=== PATIENT | female | born 1985 | race Caucasian/White ===

== ENCOUNTER 2018-03-10 11:38 | Day surgery (SDC) | payer OTHER ==
--- NOTE | 2018-03-09 23:07 | PDGENHP ---
History and Physical - Chief Complaint Right hip pain - History of Present Illness 1. ~Bilateral~Femoroacetabular impingement (RICARDO) Cam type, with~resultant labral tear; RIGHT SIDE SYMPTOMATIC HISTORY OF PRESENT ILLNESS: Marlonis a 32 y.o.~very ~active female~who I have had the pleasure to consult on today. I have enjoyed meeting her. She~lives in [place]. 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 ~She~ is single; she~has no~children. ~Marlonenjoys running marathons, yoga, hiking, and cycling. Gauri's right~hip pain~started in 2008 while training for her second marathon, with no~recalled trauma or injury, and with no~previous complaints. Marlondoes not have~a known history of hip dysplasia. Presentation today is of anterior and~lateral right~hip pain.~~The hip does~ wake her~at night and does~click and catch on her. Sitting can be uncomfortable~ for her. Marlondoes not~report suffering from lower back pain episodes ( currently). Marlonhas~participated in physical therapy over a period of 8 years and more recently for the last several months~and has~tried other conservative measures including hip injection during an MRI (she does not recall symptom relief)~, dry needling, chiropractic treatments and massage therapy. She~has not~received sufficient symptomatic improvement. Marlonhas not~utilized medication for pain management. Marlondenies issues with the left~hip. ~ Marlonunderstands that she~has a hip and pelvis problem which should be researched and wishes to get a better understanding of her~hip status, followed by an establishment of a treatment strategy, hoping she~would be able to get back to her~well being active life. History: Past medical history: ~ None which is relevant Relevant familial history: None which is relevant Past surgical history: None Marlonhas never received general anesthesia. I have reviewed, verified and agree with the past medical, surgical, family and social history. Current Medications:~has a current medication list which includes the following prescription(s): magnesium. ALLERGIES:~has No Known Allergies. Objective: Physical Examination: Marlonis 5~feet 7~inches tall and weighs 132~Lbs. Gauri~is AAO x3; she~is well- nourished, in NAD. Skin is warm and dry. ~Breathing is non-labored. ~CV with RRR by pulse. Abdomen is soft, NTND. Currently, she~walks with a normal~gait. Trendelenburg sign is negative~and proprioception is normal, both~sides. She~presents with mild~signs of joint laxity. Beightons Score: 3 (knees, Left elbow) Lower spine examination is negative~for sciatic or femoral nerve irritation with negative~SLR &~femoral stretch tests. Range of motion of the spine is normal~for flexion, extension, and rotations, with no~associated pain. Strength, Sensation and pulses are normal - bilaterally Ankles and knees exams are normal~and no~mal-alignment is evident. She~has~left~0.5~cm short leg length discrepancy. Thigh circumference is symmetric~with no evidence for muscle atrophy~on both~ sides. Hip ROM (degrees): FL ER At 90~hip FL IR At 90~hip FL AB AD EX IR Neutral hip ER Neutral hip R 100 50 15 40 5 10 45 40 L 105 55 15 40 5 10 45 40 Specific hip and pelvis tests: Impingement Test CHI Roll Add. Longus R +++ +++ Negative Negative L Negative Negative Negative Negative Glut. Med ITB Posterior Imp R Negative 5/5 strength Negative 5/5 strength Negative L Negative 5/5 strength Negative 5/5 strength Negative Squeeze test measured normal Bony Symphysis pubis is painful~to touch while concentric activity of the rectus abdominis, does not~produce pain at its insertion. Ilio Psos specific tests are~positive for pain during cycling for the right hip~ and no snap HF has good strength both hips. Anterior/Posterior~capsule tenderness RIGHT SIDE Greater trochanteric burse is pain free~on both hips. Piriformis tests: FAIR is negative, with no~local signs of neuritis related to sciatic nerve. SIJs examination is produces pain on left side~with normal~CHI in relation and local tenderness. (SIJ pain not a usual source of pain) Hamstrings tests are negative~functional contraction and negative~tendinopathy both hips. Imaging: Radiology studies which I have personally reviewed, analyzed and measured are below: XR: AP of the hip and pelvis: Performed in a good~technique Coccyx to pubic symphysis distance 1~cm. 0~degrees [place] Lines are preserved. Minimal~Pathological signs are seen in the Symphysis Pubis. Minimal~Pathological signs are seen at the Ischial tuberosity. ~ Specific measurements show: NSA~ LCE Sourcil~Angle Sharp's angle Lat. Cam Lat. Pincer C.Over~sign Head~Coverage % ATDmm R N 30 3 43 + - 12-12:30 N N L N 31 5 42 + - - N N Pos. wall sign ISS NAD ~~Dysplasia Comments R Negative Negative 11.6~mm Negative L Negative Negative 12.4~mm Negative Sclerosis Sup. Lat. OA Cysts Joint Space-WBZ Joint Space-Medial R Negative Negative Negative 3.3~mm 3.9~mm L Negative Negative Negative 3.6~mm 3.5~mm X Table lateral: Anterior cam lesion is seen~on both hips. Alpha Angle: ~ Right 67~dergrees Left 61~degrees Impression and plan: ~ Marlonis a 32 y.o.~active female~suffering from symptomatic Right~hip pain due to Right~Femoroacetabular impingement (RICARDO) Cam type, with~resultant labral tear ~causing significant disability to her~and altering her~sport and life activities. Physical examination, imaging, and her~story correspond with the diagnosis mentioned above. I explained that femoroacetabular impingement (RICARDO) arises due to a bony or soft tissue conflict between the femur (ball) and acetabulum (socket) caused by an abnormality in the shape of the hip joint. Over time, repetitive impingement can result in damage to the labrum and adjacent surface cartilage within the socket, ultimately giving rise to progressive osteoarthritis of the hip. I explained that although a labral tear can be a source of pain, it is rarely the root of the problem and typically occurs secondary to an underlying abnormality in the shape and mechanics of the hip joint. ~ I reviewed conservative treatment options for RICARDO including activity modification to avoid positions of impingement, physical therapy, non-steroidal anti-inflammatory medications, and various injections (corticosteroid and PRP) aimed at reducing inflammation in the hip joint or/and preventing dynamic impingement. PRP injections may promote healing and reduce symptoms in certain cases but it will not repair chronically damaged tissue. Although these measures may help to buy time and reduce current level of symptoms, they are not a definitive solution to the problem given the underlying abnormality in the shape of the hip joint. Patients who have failed conservative management and continue to experience symptoms are candidates for hip arthroscopy, a minimally invasive surgery that can definitively address the underlying problem. Hip arthroscopy typically includes treating the labrum with either repair or reconstruction of the torn labrum; as well as addressing the underlying abnormalities by restoring the normal shape to the hip joint. ~If the cartilage is damaged a Microfracture surgical procedure may also be necessary to help stimulate the growth of fibrocartilage. ~If a patient requires a labral reconstruction or a Microfracture, the initial rehabilitation from the surgery may take longer, but the intermediate results are typically favorable. I reviewed the technical aspects of hip arthroscopy including risks, benefits, and expected course of recovery. Gauri~understands that hip arthroscopy is a minimally invasive outpatient procedure carried out through small incisions on the outer aspect of the hip joint. During surgery, the labral tear will be identified and either repaired or reconstructed~using bone anchors and suture material. Additionally, any excessive bone will be removed with a high-speed bryan to reshape the hip joint and restore normal anatomy. Risks include infection, bleeding, injury to nearby nerves or vessels, stiffness, persistent pain, instability, venous thromboembolic disease, and traction related complications including temporary foot numbness. Rarely, revision surgery may be required to address these problems. Overall recovery takes approximately 4~ 8~months depending on the extent of damage and degree of repair. In the event that the labral tissue quality is inadequate for successful repair and healing, Gauri~understands that a labral reconstruction will be performed. This procedure entails placing a cadaver tissue graft within the hip joint and stabilizing it with bone anchors to build a new labrum. The overall recovery time for labral reconstruction is similar to that of labral repair, although the surgical procedure takes longer to perform. Gauri~will review the info presented. In order to obtain more detailed information regarding the alignment, orientation, and shape of the bony hip and pelvis I will order a CT scan to be performed. The results of the CT scan, including femoral torsion and acetabular version measured values and 3D images, will aid me in deciding on the best treatment strategy and surgical pre-planning. Marlonwill contact us if she~wishes to pursue further treatment in the future. Gauri~is happy with this plan. I have also supplied her~with handouts, outlining the expected surgical treatment and rehab involved. I wish~Gauri~all the best, ~~ Jose R Toth [facility] History Information - Allergies/Home Medication List Allergies/Adverse Reactions: No Known Allergies Allergy (Unverified 11/23/15 08:39) Home Medications: Herbals/Supplements -Info Only DAILY 03/02/18 [Last Taken Unknown] Krill Oil DAILY 03/02/18 [Last Taken Unknown] PRISTIQ DAILY 03/02/18 [Last Taken Unknown] I have personally reviewed and updated: medical history - Social History Smoking Status: Never smoked Review of Systems Review of Systems: Physical Exam Physical Exam:
[2018-03-10] MEDS ORDERED: ceFAZolin 2 GM/DEXTROSE 100 ML IV ONE (11:56)
[2018-03-10] MEDS ORDERED: ACETAMINOPHEN 500 MG TAB PO ONE (11:56)
[2018-03-10] MEDS ORDERED: PREGABALIN 150 MG CAP PO ONE (11:56)
[2018-03-10] MEDS ORDERED: LIDOCAINE 1% 2 ML INJ ID PRN (11:57)
[2018-03-10] MEDS ORDERED: LR 1,000 ML IV ONE (11:57)
[2018-03-10] MEDS ORDERED: EPINEPHrine 1 MG/ML INJ ONE ×2 (12:47→14:33)
[2018-03-10] MEDS ORDERED: BUPIVACAINE 0.25% 30 ML SDV ONE ×2 (12:47→14:33)
[2018-03-10] MEDS ORDERED: fentaNYL 250 MCG/5 ML INJ ONE (14:39)
[2018-03-10] MEDS ORDERED: PROPOFOL/EMULSION 500 MG/50 ML BOTTLE IV ONE ×2 (14:41)
[2018-03-10] MEDS ORDERED: MIDAZOLAM 2 MG/2 ML VIAL IVP ONE (14:54)
--- NOTE | 2018-03-10 14:57 | PDANEPAE ---
ANE History of Present Illness 32 year old woman for hip femorolasty ANE Past Medical History - Cardiovascular History Hx Hypertension: No Hx Arrhythmias: No Hx Chest Pain: No Hx Coronary Artery / Peripheral Vascular Disease: No Hx CHF / Valvular Disease: No Hx Palpitations: No - Pulmonary History Hx COPD: No Hx Asthma/Reactive Airway Disease: No Hx Recent Upper Respiratory Infection: No Hx Oxygen in Use at Home: No Hx Sleep Apnea: No Sleep Apnea Screening Result - Last Documented: Negative - Neurologic History Hx Cerebrovascular Accident: No Hx Seizures: No Hx Dementia: No - Endocrine History Hx Diabetes: No - Renal History Hx Renal Disorders: No - Liver History Hx Hepatic Disorders: No - Neurological & Psychiatric Hx Hx Neurological and Psychiatric Disorders: Yes Neurological / Psychiatric History Comment: DEPRESSION/ANXIETY - Cancer History Hx Cancer: No - Congenital Disorder History Hx Congenital Disorders: No - GI History Hx Gastrointestinal Disorders: No - Other Health History Other Health History: PAIN PAST 8 YRS. RELATED TO TORN LABRUM. GETS ALOT OF VIRUSES,GOOD PAST YEAR - Chronic Pain History Chronic Pain: Yes (RT HIP) - Surgical History Prior Surgeries: NONE ANE Review of Systems Review of systems is: negative Review of Systems: - Exercise capacity METS (RN): 6 METS ANE Patient History - Allergies Allergies/Adverse Reactions: No Known Allergies Allergy (Unverified 11/23/15 08:39) - Home Medications Home Medications: Herbals/Supplements -Info Only DAILY 03/02/18 [Last Taken 1 Week Ago ~03/03/18] Krill Oil DAILY 03/02/18 [Last Taken 1 Week Ago ~03/03/18] PRISTIQ DAILY 03/02/18 [Last Taken 03/10/18] - NPO status NPO Since - Liquids (Date): 03/10/18 NPO Since - Liquids (Time): 10:00 NPO Since - Solids (Date): 03/09/18 NPO Since - Solids (Time): 21:30 - Smoking Hx Smoking Status: Never smoked - Family Anes Hx Family Hx Anesthesia Complications: NONE ANE Labs/Vital Signs - Vital Signs Blood Pressure: 125/77 Heart Rate: 65 Respiratory Rate: 18 O2 Sat (%): 99 Height: 170.18 cm Weight: 58.967 kg ANE Physical Exam - Airway Neck exam: FROM Mallampati Score: Class 1 Mouth exam: normal dental/mouth exam - Pulmonary Pulmonary: no respiratory distress - Cardiovascular Cardiovascular: regular rate and rhythym - ASA Status ASA Status: I ANE Anesthesia Plan Anesthesia Plan: general endotracheal anesthesia
[2018-03-10 15:43] LABS: CREATINE KINASE 107 IU/L (0-156)
[2018-03-10] MEDS ORDERED: ONDANSETRON 4 MG/2 ML VIAL IVP PRN (16:01)
[2018-03-10] MEDS ORDERED: NALOXONE HCL 0.4 MG/ML INJ IVP PRN (16:01)
[2018-03-10] MEDS ORDERED: DEXAMETHASONE 4 MG/ML VIAL IVP PRN (16:01)
[2018-03-10] MEDS ORDERED: LABETALOL HCL 5 MG/ML 20 ML MDV IVP PRN (16:01)
[2018-03-10] MEDS ORDERED: ALBUTEROL 3 ML DEYVIAL IH PRN (16:01)
[2018-03-10] MEDS ORDERED: MEPERIDINE 25 MG/0.5 ML AMP IVP PRN (16:01)
[2018-03-10] MEDS ORDERED: HYDROCODONE/APAP 5/325 TAB PO PRN (16:01)
[2018-03-10] MEDS ORDERED: oxyCODONE IR 5 MG TAB PO PRN (16:01)
[2018-03-10] MEDS: EPINEPHrine 30 MG/30 ML MDV (0.1 MG/0.1 ML) ONE ×2 (17:34→18:14)
[2018-03-10] MEDS ORDERED: PROPOFOL 200 MG/20 ML VIAL ONE (18:33)
--- NOTE | 2018-03-10 19:00 | POSTOPPROG ---
Post Op Note Date of Operation: 03/10/18 Surgeon: Rohith Bella Senior Mobile Application Developer: Navneet Anesthesiologist: Brad Anesthesia: GET(General Endotracheal) Pre-op Diagnosis: Right RICARDO Post-op Diagnosis: Right RICARDO Procedure: Right Hip Arthroscopy Inf/Abcess present in the surg proc area at time of surgery?: No Depth: Deep Incisional (Fascial) EBL: Minimal
[2018-03-10] MEDS ORDERED: fentaNYL 100 MCG/2 ML INJ ONE ×2 (19:05→20:05)
[2018-03-10] MEDS: fentaNYL 100 MCG/2 ML INJ IVP PRN ×4 (19:08→20:14)
[2018-03-10] MEDS ORDERED: HYDROCODONE/APAP 5/325 TAB ONE (19:27)
[2018-03-10 20:39] VITALS: BP 125/84
== END 2018-03-10 21:02 | disposition home or self-care (01) ==
LOC: FSGY 11:38
PROVIDERS: ATTEND Orthopaedic Surgery Sports Medicine
PROC: 0SQ94ZZ Repair Right Hip Joint, Percutaneous Endoscopic Approach (ICD-10-PCS; principal; 2018-03-10 13:45)
PROC: 0SB94ZZ Excision of Right Hip Joint, Percutaneous Endoscopic Approach (ICD-10-PCS; principal; 2018-03-10 13:45)
PROC: BQ101ZZ Fluoroscopy of Right Hip using Low Osmolar Contrast (ICD-10-PCS; principal; 2018-03-10 13:45)
DX: M25.851 Other specified joint disorders, right hip (principal); M65.88 Other synovitis and tenosynovitis, other site
CPT/HCPCS: C1713; J0171; J0690; J2250; J2270; J2704; J3010